=== PATIENT | male | born 2000 | race Caucasian/White ===

== ENCOUNTER 2024-06-07 05:20 | Emergency (ER) | payer SELFPAY ==
[~2024-06-07] VITALS: Ht 182.9 cm; Wt 81.8 kg
[2024-06-07] MEDS: LORazepam 2MG/ML-1ML VIAL IM ONE (05:47)
[2024-06-07 05:54] VITALS: BP 182/111; PULSE 121; RESP 16; O2SAT 98
== END 2024-06-07 06:35 | disposition left against medical advice (07) ==
LOC: ER 05:20
DX: F41.9 Anxiety disorder, unspecified (principal); Z53.21 Procedure and treatment not carried out due to patient leaving prior to being seen by health care provider
CPT/HCPCS: 96372; J2060